=== PATIENT | male | born 1955 | race Caucasian/White ===

== ENCOUNTER 2020-01-12 22:58 | Inpatient (IN) | payer OTHER ==
[~2020-01-12] VITALS: Ht 167.6 cm; Wt 91.2 kg
[2020-01-12 23:05] VITALS: BP 161/93
--- NOTE | 2020-01-13 00:51 | NUR ---
2305 BS reading 65 patient given a snack, pt states he has not eaten since 12 noon. Will recheck and monitor accordingly.
[2020-01-13 00:53] VITALS: BP 159/90
[2020-01-13] MEDS ORDERED: LOSA100T2 PO (02:32)
[2020-01-13] MEDS ORDERED: OMEP40CA41 PO (02:32)
[2020-01-13] MEDS ORDERED: HYDR-3101 PO (02:32)
[2020-01-13] MEDS ORDERED: NORCO 7.5MG PO STA (02:35)
[2020-01-13] MEDS ORDERED: DESYREL PO STA (02:35)
[2020-01-13] MEDS ORDERED: TRAZ150T57 PO (02:36)
--- NOTE | 2020-01-13 02:48 | PCM.HP ---
History of Present Illness Hx of Present Illness Patient is a 64-year-old male with a past medical history of hypertension, Arcos's esophagus, GERD, insomnia, disc herniation in his back (takes [place] 7.5 q8hr prn pain) who presented with concern for Covid pneumonia. Patient indicates that 3 days ago he started to experience malaise, arthralgias and myalgias. Patient denies fevers, chills, cough, shortness of breath, sputum production. Patient indicates that he has had 1 sick contact in his nephew. Patient denies chest pain, hematuria, dysuria, flank pain, rash. Patient does endorse nausea but no vomiting or diarrhea. Patient was noted to be hemodynamically stable in facility in [facility]. Patient was transferred from [place] as there are no available beds at this time. Patient had an increase in oxygen requirement to 2 to 3 L of nasal cannula. Patient would was transferred due to need for oxygen therapy. Meds: Trazodone 150 mg nightly, omeprazole 40 mg twice daily, losartan 100 mg daily, [place] 7.5-325 mg every 8 hour as needed pain. Allergies: NKDA FHx: Non contributory SHx: Smokes 0.5 ppd but previously smoked 1-3 ppd for the past 30 years, denies alcohol use or illicit drug or IVDU. Lives in [place] PCP: Dr. Lindsay Code Status: DNR/DNI . Had lengthy code discussion with patient about what this meant. Patient has capacity and is able to make his own decisions. Review of Systems Constitutional: Weakness, Malaise; No: Fever, Chills, Sweats, Other Eyes: No: Pain, Vision change, Conjunctivae inflammation, Eyelid inflammation, Other, Redness Respiratory: No: Cough, Dry, Shortness of breath, SOB with excertion, Wheezing, Hemoptysis, Pleuritic Pain, Sputum, Wheezing, Other Cardiovascular: No: Chest Pain, Palpitations, Orthopnea, Paroxysmal Noc. Dyspnea, Edema, Lt Headedness, Other Gastrointestinal: Nausea; No: Vomiting, Abdominal Pain, Diarrhea, Constipation, Melena, Hematochezia, Other Genitourinary: No Dysuria, No Frequency, No Incontinence, No Hematuria, No Retention, No Other Musculoskeletal: arm pain, back pain Skin: No: Rash, Lesions, Jaundice, Bruising, Other Neurological: No: Weakness, Numbness, Incoordination, Change in speech, Confusion, Seizures, Other Scheduled Losartan Potassium (Cozaar), 100 MG PO DAILY24, (Reported) Omeprazole (Omeprazole), 1 CAP PO BID, (Reported) Trazodone Hcl (Trazodone Hcl), 150 MG PO NOCTE, (Reported) Scheduled PRN Hydrocodone Bit/Acetaminophen ([place] 7.5-325), 1 EACH PO Q8HR PRN for PAIN 1 - 3, (Reported) VTE VTE Risk Total Score: 4 VTE Risk Score VTE Risk: Score 0-1 = Low Risk (Aggressive mobilization; early ambulation; no VTE prophylaxis required) Score 2: Moderate Risk (Intermittent/Pneumatic Compression Device OR Lovenox/Heparin/Coumadin) Score 3-4: High Risk (Intermittent/Pneumatic Compression Device AND Lovenox/Heparin/Coumadin) Score > or =5: Highest Risk (Intermittent/Pneumatic Compression Device AND Lovenox/Heparin/Coumadin) VTE VTE Present on Admission: No Currently receiving anticoagul: Yes VTE Risk Total Score: 4 Exam Vital Signs Vital Signs Date Time Temp Pulse Resp B/P (MAP) Pulse Ox O2 Delivery O2 Flow Rate FiO2 01/13/20 00:53 97.6 60 18 159/90 (113) 100 01/13/20 00:47 Nasal Cannula 2.00 General Appearance: Alert, Oriented X3, Cooperative, No acute distress HEENT: Atraumatic, PERRLA, EOMI, Mucous membr. moist/pink Respiratory: Clear to auscultation, Normal air movement Cardiovascular: Regular rate, Normal S1, Normal S2 Abdominal: Normal bowel sounds, Soft Extremities: No clubbing, No cyanosis Skin: No rash, No breakdown, No lesions, Rash Neuro: Normal speech, Strength at 5/5 X4 ext, Normal tone, Cranial nerves 3-12 NL Psych/Mental Status: Mental status NL, Mood NL Assessment/Plan Assessment/Plan Assessment/Plan COVID Pneumonia - Patient is currently on 2 L of nasal cannula. Wean down as tolerated. Cardiac respiratory monitoring. - Hold off on giving remdesivir, convalescent plasma, dexamethasone. - Will order for inflammatory markers. If inflammatory markers are elevated then could justify dexamethasone. If patient goes up on oxygen requirements past 6 L of nasal cannula then would give remdesivir and convalescent plasma. - ordered for LDH, ferritin, CRP, procalcitonin, CBC with differential Hypertension Losartan 100 mg daily Arcos's esophagus -Omeprazole 40 mg twice daily. Had repeat scope roughly 1 month ago. Insomnia Trazodone 150 mg nightly Chronic pain from disc herniation Takes [place] 7.5-325 mg every 8 hours as needed pain. GISELA PANDA MD Jan 13, 2020 02:48
[2020-01-13] MEDS: COZAAR PO SCH (02:58)
[2020-01-13] MEDS: ZOFRAN IV PRN ×3 (02:59→17:49)
[2020-01-13 04:55] VITALS: BP 154/84
[2020-01-13 06:39] LABS: BASOPHIL # 0.1 10^3/uL (0.0-0.1); BASOPHIL % 0.5 % (0.0-0.2); EOSINOPHIL # 0.2 10^3/uL (0.0-0.2); EOSINOPHIL % 1.8 % (0.0-5.0); LYMPHOCYTES # 2.28 10^3/uL1 (1.0-4.8); LYMPHOCYTES % 24.2 % (24.0-44.0); MEAN CORP HGB 34.6 pg (26-34); MONOCYTES % 10.3 % (5.0-12.0); NEUTROPHIL # 5.9 10^3/uL (1.8-7.7); NEUTROPHILS % 62.9 % (41.0-85.0); PLATELET COUNT 181 10^3/uL (150-400)
[2020-01-13 07:31] LABS: CALCIUM 8.7 mg/dL (8.4-10.5); CARBON DIOXIDE 35.4 mmol/L (20.0-32)
[2020-01-13 08:42] VITALS: BP 144/86
[2020-01-13] MEDS: LOVENOX SQ SCH (09:10)
[2020-01-13] MEDS: SENOKOT PO SCH ×2 (09:11→21:42)
[2020-01-13] MEDS: NORCO 7.5MG PO PRN ×2 (09:11→17:49)
[2020-01-13] MEDS: MIRALAX PO SCH (09:12)
[2020-01-13] MEDS: PROTONIX PO SCH (09:13)
[2020-01-13 11:59] VITALS: BP 114/75
--- NOTE | 2020-01-13 14:20 | DIET.OP ---
Nutrition Asmt/Malnutrit 2-17 Actual Date of Review: Jan 13, 2020 Nutritional Screening: Malnutr/Diet Consult (DM/obesity) Diagnosis: covid pneumonia Pertinent Medical Hx/Surgical: HTN, barretts esophagus, GERD Subjective Information: pt on clear liquid diet due to n/v in ED per RN. RN will look into getting diet advanced. Pt states his appetite and po intake was as normal prior to admission. He denies c/s difficulty or pain on swallowing. Denies any recent wt changes. At home he avoids spicy and greasy foods due to GERD. Current Diet Order/Nutrition S: Clear liquids Pertinent Meds Current Medications Medications (Trade) Dose Ordered Sig/Gallito PRN Reason Start Time Stop Time Status Last Admin Acetaminophen/ Hydrocodone Bitart ([place] 7.5mg) 1 each Q8HR PRN PAIN 1 - 3 01/13/20 02:30 02/12/20 02:29 01/13/20 09:11 Enoxaparin Sodium (Lovenox) 40 mg Q24HRS 01/13/20 10:00 02/12/20 09:59 01/13/20 09:10 Losartan Potassium (Cozaar) 100 mg DAILY24 01/13/20 02:30 02/12/20 02:29 01/13/20 02:58 Ondansetron HCl (Zofran) 4 mg Q6HR PRN NAUSEA / VOMITING 01/13/20 03:00 02/12/20 02:59 01/13/20 09:11 Pantoprazole Sodium (Protonix) 40 mg DAILY 01/13/20 09:00 02/12/20 08:59 01/13/20 09:13 Polyethylene Glycol (Miralax) 17 gm DAILY 01/13/20 09:00 02/12/20 08:59 01/13/20 09:12 Senna (Senokot) 8.6 mg BID 01/13/20 09:00 02/12/20 08:59 01/13/20 09:11 Pertinent Labs Laboratory Tests Test 01/13/20 02:56 01/13/20 05:38 01/13/20 07:23 01/13/20 11:33 Bedside Glucose 162 93 97 White Blood Count 9.4 10^3/uL Red Blood Count 3.27 10^6/uL Hemoglobin 11.3 g/dL Hematocrit 32.5 % Mean Corpuscular Volume 99.4 fL Mean Corpuscular Hemoglobin 34.6 pg Mean Corpuscular Hemoglobin Concent 34.8 g/dL Red Cell Distribution Width 13.0 % Platelet Count 181 10^3/uL Mean Platelet Volume 9.6 fL Neutrophils (%) (Auto) 62.9 % Lymphocytes (%) (Auto) 24.2 % Monocytes (%) (Auto) 10.3 % Neutrophils # (Auto) 5.9 10^3/uL Lymphocytes # (Auto) 2.28 10^3/uL1 Monocytes # (Auto) 1.0 10^3/uL Absolute Immature Granulocyte (auto 0.03 10^3 u/L Absolute Eosinophils (auto) 0.2 10^3/uL Immature Granulocytes % 0.30 % Eosinophils % 1.8 % Basophils % 0.5 % Basophils # 0.1 10^3/uL Sodium Level 142 mmol/L Potassium Level 3.4 mmol/L Chloride Level 103.0 mmol/L Carbon Dioxide Level 35.4 mmol/L Anion Gap 7.0 Blood Urea Nitrogen 17 mg/dL Creatinine 1.21 mg/dL Estimated GFR () 73.1 Est GFR (CKD-EPI)(Non-Afr German) 60.4 BUN/Creatinine Ratio 14.0 Glucose Level 89 mg/dL Calcium Level 8.7 mg/dL Phosphorus Level 4.8 mg/dL Magnesium Level 2.6 mg/dL Ferritin 35 ng/mL Total Bilirubin 0.2 mg/dL Aspartate Amino Transf (AST/SGOT) 16 U/L Alanine Aminotransferase (ALT/SGPT) 19 U/L Alkaline Phosphatase 70 U/L Lactate Dehydrogenase 184 U/L C-Reactive Protein 0.39 mg/dL Total Protein 5.9 g/dL Albumin 3.2 g/dL Globulin 2.7 Albumin/Globulin Ratio 1.185 Procalcitonin < 0.05 ng/mL Height (Feet): 5 Height (Inches): 6 Current Weight: 230 Usual Weight: 230 %IBW: 162 Recent Weight Change: No (denies) Weight Status: Obese GI Symptoms: Constipation, Last BM (very small BM this morning) Food Allergies: No Cultural/Ethnic/Yarsanism Amee: none Usual Diet at Home: regular - no spicy or fried foods Current %PO: 60-100% Calories/Kcals/K-30 kcal/kg IBW Kcals Calculated: 4619-1151 Protein: Use Current Weight Protein g/kg: .7-.9 Protein Calculated: 73-94 Fluid: ml: 4967-8717 (1ml/kcal) Nutritional Problem: Nutr. Problems Present Problems: Inadequate oral intake Etiology: prior n/v Signs/Symptoms: diet order of clear liquids not meeting 100% of nutrition needs. RD Comments: 1. Recommend advancing diet to regular or 1800 ADA if BG is not stable. 2. RD to provide nutrition education via telehealth at follow up. 3. RD to monitor diet advancement, diet tolerance, education needs, and po intake. Expected Outcomes Diet advanced in 24 hrs. 90-100% po intake of most meals the next 3 days. Discharge on regular diet Malnutrtion/Nutrition Risk Edu: No MD Notificiation Needed?: No Sophia Hernandez Jan 13, 2020 14:20
--- NOTE | 2020-01-13 14:39 | PRM.PN ---
Subjective Subjective Date: Jan 13, 2020 Time: 14:32 Subjective 64-year-old male referred from [place]. He was diagnosed with Covid and was referred here because of the need of oxygen. Patient has prior history significant for hypertension, insomnia Arcos's esophagus. Appears to have Covid pneumonia on the x-rays in [place]. He complains of symptoms for the last 3 days with cough fever and generalized malaise. He also has nausea and vomiting that is improving. VTE VTE Risk Total Score: 4 VTE Risk Score VTE Risk: Score 0-1 = Low Risk (Aggressive mobilization; early ambulation; no VTE prophylaxis required) Score 2: Moderate Risk (Intermittent/Pneumatic Compression Device OR Lovenox/Heparin/Coumadin) Score 3-4: High Risk (Intermittent/Pneumatic Compression Device AND Lovenox/Heparin/Coumadin) Score > or =5: Highest Risk (Intermittent/Pneumatic Compression Device AND Lovenox/Heparin/Coumadin) Review of Systems Constitutional: Weakness, Malaise; No: Fever, Chills, Sweats, Other Eyes: No: Pain, Vision change, Conjunctivae inflammation, Eyelid inflammation, Other, Redness Respiratory: No: Cough, Dry, Shortness of breath, SOB with excertion, Wheezing, Hemoptysis, Pleuritic Pain, Sputum, Wheezing, Other Cardiovascular: No: Chest Pain, Palpitations, Orthopnea, Paroxysmal Noc. Dyspnea, Edema, Lt Headedness, Other Gastrointestinal: Nausea; No: Vomiting, Abdominal Pain, Diarrhea, Constipation, Melena, Hematochezia, Other Genitourinary: No Dysuria, No Frequency, No Incontinence, No Hematuria, No Retention, No Other Musculoskeletal: arm pain, back pain Skin: No: Rash, Lesions, Jaundice, Bruising, Other Neurological: No: Weakness, Numbness, Incoordination, Change in speech, Confusion, Seizures, Other Allergies: Coded Allergies: No Known Allergies (Unverified , 01/13/20) Scheduled Losartan Potassium (Cozaar), 100 MG PO DAILY24, (Reported) Omeprazole (Omeprazole), 1 CAP PO BID, (Reported) Trazodone Hcl (Trazodone Hcl), 150 MG PO NOCTE, (Reported) Scheduled PRN Hydrocodone Bit/Acetaminophen ([place] 7.5-325), 1 EACH PO Q8HR PRN for PAIN 1 - 3, (Reported) Objective Vitals and I/O Vital Sign - Last 24 Hours 01/12/20 01/12/20 01/13/20 01/13/20 20:05 23:05 00:47 00:53 Temp 97.2 97.6 Pulse 61 60 Resp 18 18 18 B/P (MAP) 161/93 (115) 159/90 (113) Pulse Ox 100 100 O2 Delivery Nasal Cannula Nasal Cannula O2 Flow Rate 2.00 2.00 01/13/20 01/13/20 01/13/20 01/13/20 02:58 04:55 08:42 11:59 Temp 97.4 97.4 97.5 Pulse 62 60 58 Resp 18 18 18 B/P (MAP) 159/90 154/84 (107) 144/86 (105) 114/75 (88) Pulse Ox 100 97 100 Intake and Output 01/13/20 07:00 Intake Total 6 ml Output Total 350 ml Balance -344 ml General: Alert, Oriented X3, Cooperative, No acute distress HEENT: Atraumatic, PERRLA, EOMI, Mucous membr. moist/pink Lungs: Clear to auscultation, Normal air movement, Other (Bilateral scattered rhonchi) Heart: Regular rate, Normal S1, Normal S2 Abdomen: Normal bowel sounds, Soft Extremities: No clubbing, No cyanosis Neuro: Normal speech, Strength at 5/5 X4 ext, Normal tone, Cranial nerves 3-12 NL Psych/Mental Status: Mental status NL, Mood NL All Results(Lab/Rad) Laboratory Tests Test 01/13/20 02:56 01/13/20 05:38 01/13/20 07:23 01/13/20 11:33 Bedside Glucose 162 93 97 White Blood Count 9.4 10^3/uL Red Blood Count 3.27 10^6/uL Hemoglobin 11.3 g/dL Hematocrit 32.5 % Mean Corpuscular Volume 99.4 fL Mean Corpuscular Hemoglobin 34.6 pg Mean Corpuscular Hemoglobin Concent 34.8 g/dL Red Cell Distribution Width 13.0 % Platelet Count 181 10^3/uL Mean Platelet Volume 9.6 fL Neutrophils (%) (Auto) 62.9 % Lymphocytes (%) (Auto) 24.2 % Monocytes (%) (Auto) 10.3 % Neutrophils # (Auto) 5.9 10^3/uL Lymphocytes # (Auto) 2.28 10^3/uL1 Monocytes # (Auto) 1.0 10^3/uL Absolute Immature Granulocyte (auto 0.03 10^3 u/L Absolute Eosinophils (auto) 0.2 10^3/uL Immature Granulocytes % 0.30 % Eosinophils % 1.8 % Basophils % 0.5 % Basophils # 0.1 10^3/uL Sodium Level 142 mmol/L Potassium Level 3.4 mmol/L Chloride Level 103.0 mmol/L Carbon Dioxide Level 35.4 mmol/L Anion Gap 7.0 Blood Urea Nitrogen 17 mg/dL Creatinine 1.21 mg/dL Estimated GFR () 73.1 Est GFR (CKD-EPI)(Non-Afr Nigerian) 60.4 BUN/Creatinine Ratio 14.0 Glucose Level 89 mg/dL Calcium Level 8.7 mg/dL Phosphorus Level 4.8 mg/dL Magnesium Level 2.6 mg/dL Ferritin 35 ng/mL Total Bilirubin 0.2 mg/dL Aspartate Amino Transf (AST/SGOT) 16 U/L Alanine Aminotransferase (ALT/SGPT) 19 U/L Alkaline Phosphatase 70 U/L Lactate Dehydrogenase 184 U/L C-Reactive Protein 0.39 mg/dL Total Protein 5.9 g/dL Albumin 3.2 g/dL Globulin 2.7 Albumin/Globulin Ratio 1.185 Procalcitonin < 0.05 ng/mL Current Medications Medications (Trade) Dose Ordered Sig/Gallito Route PRN Reason Start Time Stop Time Status Last Admin Dose Admin Acetaminophen/ Hydrocodone Bitart ([place] 7.5mg) 1 each Q8HR PRN PO PAIN 1 - 3 01/13/20 02:30 02/12/20 02:29 01/13/20 09:11 Losartan Potassium (Cozaar) 100 mg DAILY24 PO 01/13/20 02:30 02/12/20 02:29 01/13/20 02:58 Pantoprazole Sodium (Protonix) 40 mg DAILY PO 01/13/20 09:00 02/12/20 08:59 01/13/20 09:13 Enoxaparin Sodium (Lovenox) 40 mg Q24HRS SQ 01/13/20 10:00 02/12/20 09:59 01/13/20 09:10 Ondansetron HCl (Zofran) 4 mg Q6HR PRN IV NAUSEA / VOMITING 01/13/20 03:00 02/12/20 02:59 01/13/20 09:11 Trazodone HCl (Desyrel) 150 mg STAT STAT PO 01/13/20 02:35 01/13/20 05:54 DC 01/13/20 02:35 Acetaminophen/ Hydrocodone Bitart ([place] 7.5mg) 1 each STAT STAT PO 01/13/20 02:35 01/13/20 05:54 DC 01/13/20 03:02 Senna (Senokot) 8.6 mg BID PO 01/13/20 09:00 02/12/20 08:59 01/13/20 09:11 Polyethylene Glycol (Miralax) 17 gm DAILY PO 01/13/20 09:00 02/12/20 08:59 01/13/20 09:12 Course Sepsis Screening Results: Posi: POSITIVE Sepsis Qualifier/Stage: SEPSIS RISK Vitals & review Data Vital Sign - Last 24 Hours 01/12/20 01/12/20 01/13/20 01/13/20 20:05 23:05 00:47 00:53 Temp 97.2 97.6 Pulse 61 60 Resp 18 18 18 B/P (MAP) 161/93 (115) 159/90 (113) Pulse Ox 100 100 O2 Delivery Nasal Cannula Nasal Cannula O2 Flow Rate 2.00 2.00 01/13/20 01/13/20 01/13/20 01/13/20 02:58 04:55 08:42 11:59 Temp 97.4 97.4 97.5 Pulse 62 60 58 Resp 18 18 18 B/P (MAP) 159/90 154/84 (107) 144/86 (105) 114/75 (88) Pulse Ox 100 97 100 Intake and Output 01/13/20 07:00 Intake Total 6 ml Output Total 350 ml Balance -344 ml Laboratory Tests Test 01/13/20 02:56 01/13/20 05:38 01/13/20 07:23 01/13/20 11:33 Bedside Glucose 162 93 97 White Blood Count 9.4 10^3/uL Red Blood Count 3.27 10^6/uL Hemoglobin 11.3 g/dL Hematocrit 32.5 % Mean Corpuscular Volume 99.4 fL Mean Corpuscular Hemoglobin 34.6 pg Mean Corpuscular Hemoglobin Concent 34.8 g/dL Red Cell Distribution Width 13.0 % Platelet Count 181 10^3/uL Mean Platelet Volume 9.6 fL Neutrophils (%) (Auto) 62.9 % Lymphocytes (%) (Auto) 24.2 % Monocytes (%) (Auto) 10.3 % Neutrophils # (Auto) 5.9 10^3/uL Lymphocytes # (Auto) 2.28 10^3/uL1 Monocytes # (Auto) 1.0 10^3/uL Absolute Immature Granulocyte (auto 0.03 10^3 u/L Absolute Eosinophils (auto) 0.2 10^3/uL Immature Granulocytes % 0.30 % Eosinophils % 1.8 % Basophils % 0.5 % Basophils # 0.1 10^3/uL Sodium Level 142 mmol/L Potassium Level 3.4 mmol/L Chloride Level 103.0 mmol/L Carbon Dioxide Level 35.4 mmol/L Anion Gap 7.0 Blood Urea Nitrogen 17 mg/dL Creatinine 1.21 mg/dL Estimated GFR () 73.1 Est GFR (CKD-EPI)(Non-Afr Nigerian) 60.4 BUN/Creatinine Ratio 14.0 Glucose Level 89 mg/dL Calcium Level 8.7 mg/dL Phosphorus Level 4.8 mg/dL Magnesium Level 2.6 mg/dL Ferritin 35 ng/mL Total Bilirubin 0.2 mg/dL Aspartate Amino Transf (AST/SGOT) 16 U/L Alanine Aminotransferase (ALT/SGPT) 19 U/L Alkaline Phosphatase 70 U/L Lactate Dehydrogenase 184 U/L C-Reactive Protein 0.39 mg/dL Total Protein 5.9 g/dL Albumin 3.2 g/dL Globulin 2.7 Albumin/Globulin Ratio 1.185 Procalcitonin < 0.05 ng/mL Current Medications Medications (Trade) Dose Ordered Sig/Gallito PRN Reason Start Time Stop Time Status Last Admin Acetaminophen/ Hydrocodone Bitart ([place] 7.5mg) 1 each Q8HR PRN PAIN 1 - 3 01/13/20 02:30 02/12/20 02:29 01/13/20 09:11 Enoxaparin Sodium (Lovenox) 40 mg Q24HRS 01/13/20 10:00 02/12/20 09:59 01/13/20 09:10 Losartan Potassium (Cozaar) 100 mg DAILY24 01/13/20 02:30 02/12/20 02:29 01/13/20 02:58 Ondansetron HCl (Zofran) 4 mg Q6HR PRN NAUSEA / VOMITING 01/13/20 03:00 02/12/20 02:59 01/13/20 09:11 Pantoprazole Sodium (Protonix) 40 mg DAILY 01/13/20 09:00 02/12/20 08:59 01/13/20 09:13 Polyethylene Glycol (Miralax) 17 gm DAILY 01/13/20 09:00 02/12/20 08:59 01/13/20 09:12 Senna (Senokot) 8.6 mg BID 01/13/20 09:00 02/12/20 08:59 01/13/20 09:11 LEVEL 1 SEPSIS INFECTION CRITE: Flu-Pneumonia Respiratory Evidence: Need for O2 to keep>90% O2 Sat by Pulse Oximetry: 100 Oxygen Flow Rate: 2.00 Assessment/Plan Assessment/Plan Assessment/Plan COVID Pneumonia Hypertension Arcos's esophagus Insomnia Chronic pain from disc herniation Plan 1.COVID Pneumonia - Patient is currently on 2 L of nasal cannula. He had prior x-ray that shows evidence of pneumonia. Patient will have a repeat chest x-ray here.He had episodes of desaturation if he removed from the oxygen. Cardiac respiratory monitoring. - Because of the need of Supplemental oxygenation. Patient will start remdesivir,, Azithromycin and dexamethasone. -Pending for LDH, ferritin, CRP, procalcitonin, CBC with differential. 2.Hypertension Losartan 100 mg daily 3.Arcos's esophagus -Omeprazole 40 mg twice daily. Had repeat scope roughly 1 month ago. 4.Insomnia Trazodone 150 mg nightly 5. Nausea and vomiting. It seems to be controlled with the ondansetron. Patient has been n.p.o. since admission. Plan Resume diet 2 g sodium 6.Chronic pain from disc herniation Takes [place] 7.5-325 mg every 8 hours as needed pain. DVT prophylaxis: Lovenox CODE STATUS patient is DNR Disposition: EVY CHRISTINA MD Jan 13, 2020 14:39
[2020-01-13] MEDS ORDERED: REMDESIVIR (EUA) 200 MG in NS 100ML 100 ML IV SCH (15:00)
[2020-01-13 15:58] VITALS: BP 149/85
--- NOTE | 2020-01-13 16:20 | DIREP ---
PROCEDURE:CHEST 1 VIEW COMPARISON:[facility], CR, XRAY CHEST 2 VWS, 07/17/2019, 12:10 PM. INDICATIONS:COVID FINDINGS: LUNGS/PLEURA:Mild opacities in both lung bases suspicious for pneumonia, edema versus atelectasis. VASCULATURE:Normal. Unremarkable pulmonary vasculature. CARDIAC:Enlarged cardiac silhouette. MEDIASTINUM:Torturous thoracic aorta may reflect positioning of the study. BONES:Normal. No fracture or visible bony lesion. OTHER:Negative. CONCLUSION:Mild airspace disease in both lung bases consistent with pneumonia, edema versus atelectasis. Dictated by: True Farfan M.D. on 01/13/2020 at 03:18 PM Read in [place]
[2020-01-13] MEDS: REMDESIVIR (EUA) 100 MG in NS 100ML 100 ML IV SCH (16:29)
[2020-01-13] MEDS ORDERED: NS 500ML 500 ML IV ONE (17:47)
[2020-01-13] MEDS: ZITHROMAX 500 MG in NS 250ML 250 ML IV SCH (17:51)
[2020-01-13 22:24] VITALS: BP 131/77
[2020-01-14] VITALS (7 sets, daily range): BP systolic 116–172; BP diastolic 68–102
[2020-01-14] MEDS: ZOFRAN IV PRN ×3 (00:08→23:36)
[2020-01-14] MEDS: COZAAR PO SCH (01:40)
[2020-01-14] MEDS: NORCO 7.5MG PO PRN ×3 (01:41→17:12)
--- NOTE | 2020-01-14 05:15 | NUR ---
NOTIFIED DR TIRADO OF PTS ABD. PAIN 10/06. RECEIVED NEW ORDERS, UA, CT OF ABD AND PELVIS W/O CONTRAST, AMYLASE, LIPASE. ORDERS ENTERED INSTRUCTED
--- NOTE | 2020-01-14 06:10 | NUR ---
PT OFF UNIT VIA W/C TO RADIOLOGY, ACCOMPANIED BY XRAY STAFF X1. PT CONTINUES TO C/O OF SEVERE STOMACH PAIN
--- NOTE | 2020-01-14 06:44 | DIREP ---
PROCEDURE:CT ABDOMEN/PELVIS W/O CONTRAST [facility]PAR[facility], CT, CT-ABDOMEN /PELVIS W W/O CONTRAST, 02/14/2014, 11:11 AM. INDICATIONS:abd pain TECHNIQUE:Axial images were created through the abdomen and pelvis without intravenous contrast material. No oral contrast was administered. Sagittal and coronal reconstructions were performed from source images. FINDINGS: LUNG BASES:Areas of linear atelectasis in the lung bases. Coronary artery calcifications. LIVER:Diffuse decreased attenuation. No masses. BILIARY:The gallbladder is surgically absent. There is no biliary ductal dilatation. PANCREAS:Normal. No lesion, fluid collection, ductal dilatation, or atrophy. SPLEEN:Normal. No enlargement or focal lesion. ADRENALS:Normal. No mass or enlargement. URINARY TRACT:3.5 cm cyst of the posterior upper pole of the right kidney. No urinary calculi or hydronephrosis. AORTA/VASCULAR:There are aortic atherosclerotic calcifications present. No aneurysm. RETROPERITONEUM:Normal. No mass or adenopathy. BOWEL/MESENTERY:The appendix is visualized and appears normal. There is no intestinal obstruction, free fluid, free air or mesenteric inflammatory changes. ABDOMINAL WALL:Normal. No mass or hernia. PELVIC ORGANS:Normal. No visible mass. Pelvic organs appropriate for patient age. BONES:Normal for age. No bony lesion or acute fracture. OTHER:Negative. CONCLUSION: 1. No acute abdomen/pelvis abnormalities. 2. Fatty liver. 3. Right renal cyst. 4. Areas of linear atelectasis in the lung bases. Dictated by: Rafael Hardy M.D. on 01/14/2020 at 06:37 AM
[2020-01-14 07:00] LABS: MEAN CORP HGB 34.6 pg (26-34); RED CELL DISTRIBUTION WIDTH 12.9 % (11.5-14.5)
[2020-01-14 07:09] LABS: CALCIUM 8.8 mg/dL (8.4-10.5)
[2020-01-14 07:32] LABS: APPEARANCE,URINE CLEAR (CLEAR); BILIRUBIN,URINE NEGATIVE (NEGATIVE); UA COLOR YELLOW (YELLOW)
[2020-01-14 07:33] LABS: UROBILINOGEN,URINE 0.2 (NEGATIVE)
[2020-01-14] MEDS: PROTONIX PO SCH (08:15)
[2020-01-14] MEDS: MIRALAX PO SCH (08:15)
[2020-01-14] MEDS: DEXAMETHASONE 10 MG/ML VIAL IV SCH (08:15)
[2020-01-14] MEDS: SENOKOT PO SCH ×2 (08:15→20:44)
[2020-01-14] MEDS: LOVENOX SQ SCH (11:44)
--- NOTE | 2020-01-14 13:00 | NUR ---
CONTACTED DR MEDINA AT THIS TIME AND INFORMED HIM OF PATIENT'S CHIEF COMPLAINT OF ABDOMINAL PAIN AND ANXIETY. DR MEDINA STATED "I WILL PUT IN ORDERS". WILL CONTINUE TO MONITOR.
--- NOTE | 2020-01-14 14:48 | PRM.PN ---
Subjective Subjective Date: Jan 14, 2020 Time: 14:47 Subjective 64-year-old male referred from [place]. He was diagnosed with Covid and was referred here because of the need of oxygen. Patient has prior history significant for hypertension, insomnia Arcos's esophagus. Appears to have Covid pneumonia on the x-rays in [place]. He complains of symptoms for the last 3 days with cough fever and generalized malaise. He also has nausea and vomiting that is improving. VTE VTE Risk Total Score: 4 VTE Risk Score VTE Risk: Score 0-1 = Low Risk (Aggressive mobilization; early ambulation; no VTE prophylaxis required) Score 2: Moderate Risk (Intermittent/Pneumatic Compression Device OR Lovenox/Heparin/Coumadin) Score 3-4: High Risk (Intermittent/Pneumatic Compression Device AND Lovenox/Heparin/Coumadin) Score > or =5: Highest Risk (Intermittent/Pneumatic Compression Device AND Lovenox/Heparin/Coumadin) Review of Systems Constitutional: Weakness, Malaise; No: Fever, Chills, Sweats, Other Eyes: No: Pain, Vision change, Conjunctivae inflammation, Eyelid inflammation, Other, Redness Respiratory: No: Cough, Dry, Shortness of breath, SOB with excertion, Wheezing, Hemoptysis, Pleuritic Pain, Sputum, Wheezing, Other Cardiovascular: No: Chest Pain, Palpitations, Orthopnea, Paroxysmal Noc. Dyspnea, Edema, Lt Headedness, Other Gastrointestinal: Nausea; No: Vomiting, Abdominal Pain, Diarrhea, Constipation, Melena, Hematochezia, Other Genitourinary: No Dysuria, No Frequency, No Incontinence, No Hematuria, No Retention, No Other Musculoskeletal: arm pain, back pain Skin: No: Rash, Lesions, Jaundice, Bruising, Other Neurological: No: Weakness, Numbness, Incoordination, Change in speech, Confusion, Seizures, Other Allergies: Coded Allergies: No Known Allergies (Unverified , 01/13/20) Scheduled Losartan Potassium (Cozaar), 100 MG PO DAILY24, (Reported) Omeprazole (Omeprazole), 1 CAP PO BID, (Reported) Trazodone Hcl (Trazodone Hcl), 150 MG PO NOCTE, (Reported) Scheduled PRN Hydrocodone Bit/Acetaminophen ([place] 7.5-325), 1 EACH PO Q8HR PRN for PAIN 1 - 3, (Reported) Objective Vitals and I/O Vital Sign - Last 24 Hours 01/13/20 01/13/20 01/13/20 01/13/20 15:58 19:48 21:50 22:24 Temp 97.4 98.6 Pulse 52 70 65 Resp 18 18 18 B/P (MAP) 149/85 (106) 131/77 (95) Pulse Ox 100 97 100 O2 Delivery Nasal Cannula Nasal Cannula O2 Flow Rate 2.00 6.00 FiO2 45 01/13/20 01/14/20 01/14/20 01/14/20 23:10 00:21 01:40 04:15 Temp 98.2 97.0 Pulse 60 62 Resp 18 18 B/P (MAP) 116/78 (91) 116/78 132/77 (95) Pulse Ox 100 100 O2 Delivery Nasal Cannula Nasal Canula O2 Flow Rate 2.00 2.00 01/14/20 01/14/20 01/14/20 01/14/20 05:42 08:56 09:56 12:40 Temp 98.4 97.6 97.7 Pulse 62 56 62 Resp 18 18 18 B/P (MAP) 120/68 (85) 158/83 (108) 172/102 (125) Pulse Ox 100 99 98 O2 Delivery Nasal Cannula O2 Flow Rate 2.00 Intake and Output 01/14/20 07:00 Intake Total 120 ml Output Total 1515 ml Balance -1395 ml General: Alert, Oriented X3, Cooperative, No acute distress HEENT: Atraumatic, PERRLA, EOMI, Mucous membr. moist/pink Lungs: Clear to auscultation, Normal air movement, Other (Bilateral scattered rhonchi) Heart: Regular rate, Normal S1, Normal S2 Abdomen: Normal bowel sounds, Soft Extremities: No clubbing, No cyanosis Neuro: Normal speech, Strength at 5/5 X4 ext, Normal tone, Cranial nerves 3-12 NL Psych/Mental Status: Mental status NL, Mood NL All Results(Lab/Rad) Laboratory Tests Test 01/13/20 02:56 01/13/20 05:38 01/13/20 07:23 01/13/20 11:33 Bedside Glucose 162 93 97 White Blood Count 9.4 10^3/uL Red Blood Count 3.27 10^6/uL Hemoglobin 11.3 g/dL Hematocrit 32.5 % Mean Corpuscular Volume 99.4 fL Mean Corpuscular Hemoglobin 34.6 pg Mean Corpuscular Hemoglobin Concent 34.8 g/dL Red Cell Distribution Width 13.0 % Platelet Count 181 10^3/uL Mean Platelet Volume 9.6 fL Neutrophils (%) (Auto) 62.9 % Lymphocytes (%) (Auto) 24.2 % Monocytes (%) (Auto) 10.3 % Neutrophils # (Auto) 5.9 10^3/uL Lymphocytes # (Auto) 2.28 10^3/uL1 Monocytes # (Auto) 1.0 10^3/uL Absolute Immature Granulocyte (auto 0.03 10^3 u/L Absolute Eosinophils (auto) 0.2 10^3/uL Immature Granulocytes % 0.30 % Eosinophils % 1.8 % Basophils % 0.5 % Basophils # 0.1 10^3/uL Sodium Level 142 mmol/L Potassium Level 3.4 mmol/L Chloride Level 103.0 mmol/L Carbon Dioxide Level 35.4 mmol/L Anion Gap 7.0 Blood Urea Nitrogen 17 mg/dL Creatinine 1.21 mg/dL Estimated GFR () 73.1 Est GFR (CKD-EPI)(Non-Afr Cuban) 60.4 BUN/Creatinine Ratio 14.0 Glucose Level 89 mg/dL Calcium Level 8.7 mg/dL Phosphorus Level 4.8 mg/dL Magnesium Level 2.6 mg/dL Ferritin 35 ng/mL Total Bilirubin 0.2 mg/dL Aspartate Amino Transf (AST/SGOT) 16 U/L Alanine Aminotransferase (ALT/SGPT) 19 U/L Alkaline Phosphatase 70 U/L Lactate Dehydrogenase 184 U/L C-Reactive Protein 0.39 mg/dL Total Protein 5.9 g/dL Albumin 3.2 g/dL Globulin 2.7 Albumin/Globulin Ratio 1.185 Procalcitonin < 0.05 ng/mL Current Medications Medications (Trade) Dose Ordered Sig/Gallito Route PRN Reason Start Time Stop Time Status Last Admin Dose Admin Acetaminophen/ Hydrocodone Bitart ([place] 7.5mg) 1 each Q8HR PRN PO PAIN 1 - 3 01/13/20 02:30 02/12/20 02:29 01/13/20 09:11 Losartan Potassium (Cozaar) 100 mg DAILY24 PO 01/13/20 02:30 02/12/20 02:29 01/13/20 02:58 Pantoprazole Sodium (Protonix) 40 mg DAILY PO 01/13/20 09:00 02/12/20 08:59 01/13/20 09:13 Enoxaparin Sodium (Lovenox) 40 mg Q24HRS SQ 01/13/20 10:00 02/12/20 09:59 01/13/20 09:10 Ondansetron HCl (Zofran) 4 mg Q6HR PRN IV NAUSEA / VOMITING 01/13/20 03:00 02/12/20 02:59 01/13/20 09:11 Trazodone HCl (Desyrel) 150 mg STAT STAT PO 01/13/20 02:35 01/13/20 05:54 DC 01/13/20 02:35 Acetaminophen/ Hydrocodone Bitart ([place] 7.5mg) 1 each STAT STAT PO 01/13/20 02:35 01/13/20 05:54 DC 01/13/20 03:02 Senna (Senokot) 8.6 mg BID PO 01/13/20 09:00 02/12/20 08:59 01/13/20 09:11 Polyethylene Glycol (Miralax) 17 gm DAILY PO 01/13/20 09:00 02/12/20 08:59 01/13/20 09:12 Course Sepsis Screening Results: Posi: POSITIVE Sepsis Qualifier/Stage: SEPSIS RISK Vitals & review Data Vital Sign - Last 24 Hours 01/12/20 01/12/20 01/13/20 01/13/20 20:05 23:05 00:47 00:53 Temp 97.2 97.6 Pulse 61 60 Resp 18 18 18 B/P (MAP) 161/93 (115) 159/90 (113) Pulse Ox 100 100 O2 Delivery Nasal Cannula Nasal Cannula O2 Flow Rate 2.00 2.00 01/13/20 01/13/20 01/13/20 01/13/20 02:58 04:55 08:42 11:59 Temp 97.4 97.4 97.5 Pulse 62 60 58 Resp 18 18 18 B/P (MAP) 159/90 154/84 (107) 144/86 (105) 114/75 (88) Pulse Ox 100 97 100 Intake and Output 01/13/20 07:00 Intake Total 6 ml Output Total 350 ml Balance -344 ml Laboratory Tests Test 01/13/20 02:56 01/13/20 05:38 01/13/20 07:23 01/13/20 11:33 Bedside Glucose 162 93 97 White Blood Count 9.4 10^3/uL Red Blood Count 3.27 10^6/uL Hemoglobin 11.3 g/dL Hematocrit 32.5 % Mean Corpuscular Volume 99.4 fL Mean Corpuscular Hemoglobin 34.6 pg Mean Corpuscular Hemoglobin Concent 34.8 g/dL Red Cell Distribution Width 13.0 % Platelet Count 181 10^3/uL Mean Platelet Volume 9.6 fL Neutrophils (%) (Auto) 62.9 % Lymphocytes (%) (Auto) 24.2 % Monocytes (%) (Auto) 10.3 % Neutrophils # (Auto) 5.9 10^3/uL Lymphocytes # (Auto) 2.28 10^3/uL1 Monocytes # (Auto) 1.0 10^3/uL Absolute Immature Granulocyte (auto 0.03 10^3 u/L Absolute Eosinophils (auto) 0.2 10^3/uL Immature Granulocytes % 0.30 % Eosinophils % 1.8 % Basophils % 0.5 % Basophils # 0.1 10^3/uL Sodium Level 142 mmol/L Potassium Level 3.4 mmol/L Chloride Level 103.0 mmol/L Carbon Dioxide Level 35.4 mmol/L Anion Gap 7.0 Blood Urea Nitrogen 17 mg/dL Creatinine 1.21 mg/dL Estimated GFR () 73.1 Est GFR (CKD-EPI)(Non-Afr Cuban) 60.4 BUN/Creatinine Ratio 14.0 Glucose Level 89 mg/dL Calcium Level 8.7 mg/dL Phosphorus Level 4.8 mg/dL Magnesium Level 2.6 mg/dL Ferritin 35 ng/mL Total Bilirubin 0.2 mg/dL Aspartate Amino Transf (AST/SGOT) 16 U/L Alanine Aminotransferase (ALT/SGPT) 19 U/L Alkaline Phosphatase 70 U/L Lactate Dehydrogenase 184 U/L C-Reactive Protein 0.39 mg/dL Total Protein 5.9 g/dL Albumin 3.2 g/dL Globulin 2.7 Albumin/Globulin Ratio 1.185 Procalcitonin < 0.05 ng/mL Current Medications Medications (Trade) Dose Ordered Sig/Gallito PRN Reason Start Time Stop Time Status Last Admin Acetaminophen/ Hydrocodone Bitart ([place] 7.5mg) 1 each Q8HR PRN PAIN 1 - 3 01/13/20 02:30 02/12/20 02:29 01/13/20 09:11 Enoxaparin Sodium (Lovenox) 40 mg Q24HRS 01/13/20 10:00 02/12/20 09:59 01/13/20 09:10 Losartan Potassium (Cozaar) 100 mg DAILY24 01/13/20 02:30 02/12/20 02:29 01/13/20 02:58 Ondansetron HCl (Zofran) 4 mg Q6HR PRN NAUSEA / VOMITING 01/13/20 03:00 02/12/20 02:59 01/13/20 09:11 Pantoprazole Sodium (Protonix) 40 mg DAILY 01/13/20 09:00 02/12/20 08:59 01/13/20 09:13 Polyethylene Glycol (Miralax) 17 gm DAILY 01/13/20 09:00 02/12/20 08:59 01/13/20 09:12 Senna (Senokot) 8.6 mg BID 01/13/20 09:00 02/12/20 08:59 01/13/20 09:11 LEVEL 1 SEPSIS INFECTION CRITE: Flu-Pneumonia Cardiovascular Evidence: Not Assessed or None Hematologic Evidence: None/Not assessed Hepatic Evidence: None/Not assessed Metabolic Evidence: None/Not assessed Neurological Evidence: None/Not assessed Respiratory Evidence: Need for O2 to keep>90% Renal Evidence: None/Not assessed O2 Sat by Pulse Oximetry: 98 Oxygen Flow Rate: 2.00 Assessment/Plan Assessment/Plan Assessment/Plan 1.COVID Pneumonia - 2.Hypertension 3.Arcos's esophagus - 4.Insomnia 5. Nausea and vomiting. 6.Chronic pain from disc herniation Plan 1.COVID Pneumonia Patient is still require oxygen and his labs shows a white count of 8.2 with hemoglobin of 11. BUN and creatinine is normal. AST ALT is within normal limits. Lipase of 79 - Patient is currently on 2 L of nasal cannula. He had prior x-ray that shows evidence of pneumonia. Patient will have a repeat chest x-ray here.He had episodes of desaturation if he removed from the oxygen. Cardiac respiratory monitoring. - Because of the need of Supplemental oxygenation. Patient will start r emdesivir,, Azithromycin and dexamethasone. -. 2.Hypertension Losartan 100 mg daily 3.Arcos's esophagus -Omeprazole 40 mg twice daily. Had repeat scope roughly 1 month ago. 4.Insomnia Trazodone 150 mg nightly 5. Nausea and vomiting. It seems to be controlled with the ondansetron. Patient has been n.p.o. since admission. CT scan of the abdomen report: 1. No acute abdomen/pelvis abnormalities. 2. Fatty liver. 3. Right renal cyst. 4. Areas of linear atelectasis in the lung bases. Plan Resume diet 2 g sodium Continue antinausea medication Continue PPI I will add Carafate 6.Chronic pain from disc herniation Takes [place] 7.5-325 mg every 8 hours as needed pain. DVT prophylaxis: Lovenox CODE STATUS patient is DNR Disposition: EVY CHRISTINA MD Jan 14, 2020 14:47
[2020-01-14] MEDS: ZITHROMAX 500 MG in NS 250ML 250 ML IV SCH (16:30)
[2020-01-14] MEDS: CARAFATE PO SCH ×2 (17:11→20:44)
[2020-01-14] MEDS: BENADRYL IV PRN (17:12)
[2020-01-15 00:16] VITALS: BP 161/93
[2020-01-15] MEDS: COZAAR PO SCH (00:59)
[2020-01-15] MEDS: BENADRYL IV PRN ×3 (01:13→21:51)
[2020-01-15] MEDS: NORCO 7.5MG PO PRN ×3 (01:13→18:36)
[2020-01-15 04:38] VITALS: BP 169/90
[2020-01-15 06:45] LABS: MEAN CORP HGB 34.6 pg (26-34); RED CELL DISTRIBUTION WIDTH 12.4 % (11.5-14.5)
[2020-01-15 07:17] LABS: CALCIUM 9.4 mg/dL (8.4-10.5); CARBON DIOXIDE 32.7 mmol/L (20.0-32)
[2020-01-15 07:30] VITALS: BP 135/77
[2020-01-15] MEDS: DEXAMETHASONE 10 MG/ML VIAL IV SCH (09:00)
[2020-01-15] MEDS: MIRALAX PO SCH (09:00)
[2020-01-15] MEDS: SENOKOT PO SCH ×2 (09:20→21:32)
[2020-01-15] MEDS: PROTONIX PO SCH (09:21)
[2020-01-15] MEDS: CARAFATE PO SCH ×4 (09:21→21:31)
[2020-01-15] MEDS ORDERED: COLACE PO ONE (09:27)
[2020-01-15] MEDS ORDERED: CEPHULAC ONE (09:27)
[2020-01-15] MEDS: LOVENOX SQ SCH (10:00)
[2020-01-15 12:39] VITALS: BP 150/82
[2020-01-15] MEDS: REMDESIVIR (EUA) 100 MG in NS 100ML 100 ML IV SCH (15:00)
[2020-01-15] MEDS: ZITHROMAX 500 MG in NS 250ML 250 ML IV SCH (16:00)
[2020-01-15 17:17] VITALS: BP 168/87
[2020-01-15 20:17] VITALS: BP 172/92
[2020-01-16 00:31] VITALS: BP 168/96
[2020-01-16] MEDS: COZAAR PO SCH (02:05)
[2020-01-16] MEDS: NORCO 7.5MG PO PRN ×2 (02:08→10:08)
[2020-01-16] MEDS: BENADRYL IV PRN ×2 (02:08→10:09)
[2020-01-16] MEDS: ZOFRAN IV PRN (02:09)
[2020-01-16 03:21] VITALS: BP 157/87
[2020-01-16 06:48] LABS: CARBON DIOXIDE 32.1 mmol/L (20.0-32)
[2020-01-16 06:51] LABS: RED CELL DISTRIBUTION WIDTH 12.8 % (11.5-14.5)
[2020-01-16] MEDS: CARAFATE PO SCH ×2 (07:46→10:08)
[2020-01-16] MEDS: LOVENOX SQ SCH (08:00)
[2020-01-16] MEDS: MIRALAX PO SCH (08:01)
[2020-01-16] MEDS: SENOKOT PO SCH (08:01)
[2020-01-16] MEDS: PROTONIX PO SCH (08:01)
[2020-01-16] MEDS: DEXAMETHASONE 10 MG/ML VIAL IV SCH (09:00)
[2020-01-16 09:44] VITALS: BP 138/87
[2020-01-16 12:42] VITALS: BP 167/97
--- NOTE | 2020-01-16 13:39 | PRM.DC ---
Subjective Subjective Date of Discharge: Jan 16, 2020 Time of Request to Discharge: 13:31 Subjective No acute events, vital signs stable no acute distress noted patient utilizing supplemental oxygen 2 L nasal cannula home oxygen has been delivered and he has a portable O2 here in room patient to be discharged home today. Constitutional: denies no symptoms reported, denies see HPI, denies chills, den ies diaphoresis, denies fever, denies malaise, denies weakness, denies other EENTM: denies no symptoms reported, denies see HPI, denies eye pain, denies blurred vision, denies tearing, denies double vision, denies ear pain, denies ear discharge, denies nose pain, denies nose congestion, denies throat pain, denies throat swelling, denies mouth pain, denies mouth swelling, denies other Respiratory: denies no symptoms reported; see HPI; denies cough, denies orthopnea; shortness of breath, SOB with exertion; denies SOB at rest, denies stridor, denies wheezing, denies other Cardiovascular: denies no symptoms reported, denies see HPI, denies chest pain, denies edema, denies irregular heart rate, denies lightheadedness, denies palpitations, denies syncope, denies other ABD/GI (ROS): denies no symptoms reported, denies see HPI, denies abdomen distended, denies abdominal pain, denies blood streaked bowels, denies constipated, denies diarrhea, denies difficulty swallowing, denies nausea, denies poor appetite, denies poor fluid intake, denies rectal bleeding, denies vomiting, denies other Genitourinary: denies no symptoms reported, denies see HPI, denies burning, denies dysuria, denies discharge, denies frequency, denies flank pain, denies hematuria, denies incontinence, denies pain, denies urgency, denies other Musculoskeletal: denies no symptoms reported, denies see HPI, denies back pain, denies gout, denies joint pain, denies joint swelling, denies muscle pain, denies muscle stiffness, denies neck pain, denies other Skin: denies no symptoms reported, denies see HPI, denies change in color, denies change in hair/nails, denies dryness, denies lesions, denies lumps, denies rash, denies other Psychiatric/Neurological: denies no symptoms reported, denies see HPI, denies anxiety, denies depressed, denies emotional problems, denies headache, denies numbness, denies paresthesia, denies pre-existing deficit, denies seizure, denies tingling, denies tremors, denies weakness, denies other Endocrine: denies no symptoms reported, denies see HPI, denies excessive sweating, denies flushing, denies intolerance to cold, denies intolerance to heat, denies increased hunger, denies increased thrist, denies increased urine, denies unexplained weight gain, denies unexplaned weight loss, denies other Hematologic/Lymphatic: denies no symptoms reported, denies see HPI, denies anemia, denies blood clots, denies easy bleeding, denies easy bruising, denies swollen glands, denies other All Other Systems: Reviewed and Negative Exam Vital Signs Vital Signs Date Time Temp Pulse Resp B/P (MAP) Pulse Ox O2 Delivery O2 Flow Rate FiO2 01/16/20 12:42 98.4 65 18 167/97 (120) 95 01/16/20 11:40 3.00 01/16/20 07:52 Nasal Cannula 01/15/20 21:20 28 General Appearance: Alert, Oriented X3, Cooperative, No acute distress HEENT: Atraumatic, PERRLA, EOMI Respiratory: Normal air movement, Other (Diminished in bases) Cardiovascular: Regular rate, Normal S1, Normal S2 Abdominal: Normal bowel sounds, Soft Skin: No rash, No breakdown Neuro: Normal speech, Strength at 5/5 X4 ext Psych/Mental Status: Mental status NL, Mood NL VTE VTE Risk Total Score: 4 VTE Risk Score VTE Risk: Score 0-1 = Low Risk (Aggressive mobilization; early ambulation; no VTE prophylaxis required) Score 2: Moderate Risk (Intermittent/Pneumatic Compression Device OR Lovenox/Heparin/Coumadin) Score 3-4: High Risk (Intermittent/Pneumatic Compression Device AND Lovenox/Heparin/Coumadin) Score > or =5: Highest Risk (Intermittent/Pneumatic Compression Device AND Lovenox/Heparin/Coumadin) Objective Vitals and I/O Vital Sign - Last 24 Hours 01/15/20 01/15/20 01/15/20 01/15/20 17:17 18:15 20:00 20:17 Temp 98.2 97.9 Pulse 67 67 68 Resp 18 18 18 B/P (MAP) 168/87 (114) 172/92 (118) Pulse Ox 96 96 97 O2 Delivery Nasal Cannula Nasal Cannula O2 Flow Rate 4.00 2.00 FiO2 36 01/15/20 01/16/20 01/16/20 01/16/20 21:20 00:31 02:05 03:21 Temp 97.6 98.1 Pulse 68 65 70 Resp 18 18 18 B/P (MAP) 168/96 (120) 168/96 157/87 (110) Pulse Ox 99 98 99 O2 Delivery Nasal Cannula O2 Flow Rate 2.00 FiO2 28 01/16/20 01/16/20 01/16/20 01/16/20 07:52 09:44 11:40 12:42 Temp 98.2 98.4 Pulse 67 95 65 Resp 18 19 18 B/P (MAP) 138/87 (104) 167/97 (120) Pulse Ox 95 94 95 O2 Delivery Nasal Cannula O2 Flow Rate 2.00 3.00 Intake and Output 01/16/20 07:00 Intake Total 670 ml Output Total 900 ml Balance -230 ml General: Alert, Oriented X3, Cooperative, No acute distress HEENT: Atraumatic, PERRLA, EOMI, Mucous membr. moist/pink Lungs: Clear to auscultation, Normal air movement, Other (Bilateral scattered rhonchi) Heart: Regular rate, Normal S1, Normal S2 Abdomen: Normal bowel sounds, Soft Extremities: No clubbing, No cyanosis Neuro: Normal speech, Strength at 5/5 X4 ext, Normal tone, Cranial nerves 3-12 NL Psych/Mental Status: Mental status NL, Mood NL All Results(Lab/Rad) Laboratory Tests Test 01/13/20 02:56 01/13/20 05:38 01/13/20 07:23 01/13/20 11:33 Bedside Glucose 162 93 97 White Blood Count 9.4 10^3/uL Red Blood Count 3.27 10^6/uL Hemoglobin 11.3 g/dL Hematocrit 32.5 % Mean Corpuscular Volume 99.4 fL Mean Corpuscular Hemoglobin 34.6 pg Mean Corpuscular Hemoglobin Concent 34.8 g/dL Red Cell Distribution Width 13.0 % Platelet Count 181 10^3/uL Mean Platelet Volume 9.6 fL Neutrophils (%) (Auto) 62.9 % Lymphocytes (%) (Auto) 24.2 % Monocytes (%) (Auto) 10.3 % Neutrophils # (Auto) 5.9 10^3/uL Lymphocytes # (Auto) 2.28 10^3/uL1 Monocytes # (Auto) 1.0 10^3/uL Absolute Immature Granulocyte (auto 0.03 10^3 u/L Absolute Eosinophils (auto) 0.2 10^3/uL Immature Granulocytes % 0.30 % Eosinophils % 1.8 % Basophils % 0.5 % Basophils # 0.1 10^3/uL Sodium Level 142 mmol/L Potassium Level 3.4 mmol/L Chloride Level 103.0 mmol/L Carbon Dioxide Level 35.4 mmol/L Anion Gap 7.0 Blood Urea Nitrogen 17 mg/dL Creatinine 1.21 mg/dL Estimated GFR () 73.1 Est GFR (CKD-EPI)(Non-Afr Czech) 60.4 BUN/Creatinine Ratio 14.0 Glucose Level 89 mg/dL Calcium Level 8.7 mg/dL Phosphorus Level 4.8 mg/dL Magnesium Level 2.6 mg/dL Ferritin 35 ng/mL Total Bilirubin 0.2 mg/dL Aspartate Amino Transf (AST/SGOT) 16 U/L Alanine Aminotransferase (ALT/SGPT) 19 U/L Alkaline Phosphatase 70 U/L Lactate Dehydrogenase 184 U/L C-Reactive Protein 0.39 mg/dL Total Protein 5.9 g/dL Albumin 3.2 g/dL Globulin 2.7 Albumin/Globulin Ratio 1.185 Procalcitonin < 0.05 ng/mL Current Medications Medications (Trade) Dose Ordered Sig/Gallito Route PRN Reason Start Time Stop Time Status Last Admin Dose Admin Acetaminophen/ Hydrocodone Bitart ([place] 7.5mg) 1 each Q8HR PRN PO PAIN 1 - 3 01/13/20 02:30 02/12/20 02:29 01/13/20 09:11 Losartan Potassium (Cozaar) 100 mg DAILY24 PO 01/13/20 02:30 02/12/20 02:29 01/13/20 02:58 Pantoprazole Sodium (Protonix) 40 mg DAILY PO 01/13/20 09:00 02/12/20 08:59 01/13/20 09:13 Enoxaparin Sodium (Lovenox) 40 mg Q24HRS SQ 01/13/20 10:00 02/12/20 09:59 01/13/20 09:10 Ondansetron HCl (Zofran) 4 mg Q6HR PRN IV NAUSEA / VOMITING 01/13/20 03:00 02/12/20 02:59 01/13/20 09:11 Trazodone HCl (Desyrel) 150 mg STAT STAT PO 01/13/20 02:35 01/13/20 05:54 DC 01/13/20 02:35 Acetaminophen/ Hydrocodone Bitart ([place] 7.5mg) 1 each STAT STAT PO 01/13/20 02:35 01/13/20 05:54 DC 01/13/20 03:02 Senna (Senokot) 8.6 mg BID PO 01/13/20 09:00 02/12/20 08:59 01/13/20 09:11 Polyethylene Glycol (Miralax) 17 gm DAILY PO 01/13/20 09:00 02/12/20 08:59 01/13/20 09:12 Medication Reconciliation Scheduled Losartan Potassium (Cozaar), 100 MG PO DAILY24, (Reported) Omeprazole (Omeprazole), 1 CAP PO BID, (Reported) Trazodone Hcl (Trazodone Hcl), 150 MG PO NOCTE, (Reported) Scheduled PRN Hydrocodone Bit/Acetaminophen ([place] 7.5-325), 1 EACH PO Q8HR PRN for PAIN 1 - 3, (Reported) Plan Assessment 64-year-old male presented with Covid transferred from [facility] related to hypoxia and respiratory failure need for oxygen. Patient has been weaned down to 2 L nasal cannula. Medical history hypertension, insomnia, Arcos's esophagus. Patient noted the symptoms initiated 3 days after cough general malaise. No longer has any vomiting or nausea. Patient appears anxious to go home. Patient has home oxygen already delivered. He also has a portable tank in his room. Patient needs to follow-up with PCP within 1 week. Patient to be staying with family. Patient did receive remdesivir and azithromycin.Noted potassium 3.3 will send home with potassium supplement 1.COVID Pneumonia Patient is still require oxygen Patient is being sent home with oxygen as needed 2 L Patient did receive azithromycin and remdesivirAnd dexamethasone 2.Hypertension Losartan 100 mg daily 3.Arcos's esophagus -Omeprazole 40 mg twice daily. Had repeat scope roughly 1 month ago. 4.Insomnia Trazodone 150 mg nightly 5. Nausea and vomiting. It seems to be controlled with the ondansetron. Patient has been n.p.o. since admission. CT scan of the abdomen report: 1. No acute abdomen/pelvis abnormalities. 2. Fatty liver. 3. Right renal cyst. 4. Areas of linear atelectasis in the lung bases. Plan Discharge home Home oxygen Potassium replacement PPI 6.Chronic pain from disc herniation Takes [place] 7.5-325 mg every 8 hours as needed pain. DVT prophylaxis: Lovenox CODE STATUS patient is DNR Plan My Orders - TRAMAINE MOY NP Procedure Category Date Status Time Discharge DISCHARGE 01/16/20 Transmitted 13:27 TRAMAINE MOY NP Jan 16, 2020 13:39
[2020-01-16] MEDS ORDERED: POTA10TA6 PO (13:43)
--- NOTE | 2020-01-16 14:12 | NUR ---
Discharge Discontinued IV per aseptic technique, catheter intact, no s/s of infection noted. Discharge information given to patient. Education session held with patient prior to discharge in the forum of verbal and written material. Education session included when to seek immediate medical care, follow up appointment, new medication and side effects as well as other discharge information. Patient verbalized understanding no questions or concerns presented at this time. patient left unit via wheelchair. Patient left via private auto with family member. Relinquished care at this.
[2020-01-16 14:32] VITALS: BP 167/78
[2020-01-16 15:58] VITALS: BP 141/69
== END 2020-01-16 14:12 | disposition home or self-care (01) | DRG 177 ==
LOC: MS 22:58
PROVIDERS: ADMIT Family Medicine; ATTEND Internal Medicine
PROC: XW033E5 Introduction of Remdesivir Anti-infective into Peripheral Vein, Percutaneous Approach, New Technology Group 5 (ICD-10-PCS; principal; 2020-01-13)
DX: U07.1 COVID-19 (principal); J12.89 Other viral pneumonia; J96.91 Respiratory failure, unspecified with hypoxia; K22.70 Barrett's esophagus without dysplasia; K76.0 Fatty (change of) liver, not elsewhere classified; N28.1 Cyst of kidney, acquired; Z66 Do not resuscitate; I10 Essential (primary) hypertension; G89.29 Other chronic pain; G47.00 Insomnia, unspecified; K21.9 Gastro-esophageal reflux disease without esophagitis; F17.210 Nicotine dependence, cigarettes, uncomplicated; Z79.899 Other long term (current) drug therapy
CPT/HCPCS: 36415; 71045; 74176; 80053; 81003; 82150; 82728; 82948; 83615; 83690; 83735; 84100; 84145; 85025; 85027; 85379; 86140; G0378; J0456; J1100; J1200; J1650; J2405; J7040; J7050